=== PATIENT | female | born 1950 | race Caucasian/White ===

== ENCOUNTER 2023-10-24 23:03 | Emergency (ER) | payer MEDICARE, MEDICAID ==
[~2023-10-24] VITALS: Ht 167.6 cm; Wt 90.0 kg
[2023-10-25 03:55] VITALS: BP 132/71; PULSE 84; RESP 18; TEMP 98.1; O2SAT 99
== END 2023-10-25 03:55 | disposition home or self-care (01) ==
LOC: ER 23:04
DX: R51.9 Headache, unspecified (principal); W19.XXXA Unspecified fall, initial encounter; Y93.89 Activity, other specified; Y92.89 Other specified places as the place of occurrence of the external cause; Y99.8 Other external cause status
CPT/HCPCS: 70450; 99284